=== PATIENT | male | born 1965 | race Caucasian/White ===

== ENCOUNTER 2019-01-04 07:54 | Emergency (ER) | payer MEDICARE ==
[2019-01-04] MEDS ORDERED: Ketorolac Tromethamine 30 MG/ML VIAL ONE (08:18)
[2019-01-04 08:32] LABS: #Basophils 0.1 thou/uL (0.0-0.2); #Eosinphils 0.2 thou/uL (0.0-0.7); #Lymphocytes 2.1 thou/uL (1.20-3.40); #Monocytes 0.7 thou/uL (0.11-0.59); #Neutrophils 4.3 thou/uL (1.40-6.50); %Eosinophils 2.1 % (0.0-10.0); %Monocytes 9.6 % (0.0-10.0); %Neutrophils 58.3 % (42.0-75.0); Hemoglobin 13.4 g/dL (14.0-18.0); Mean Corpuscular HGB CONC 32.2 g/dL (32.0-36.0); Mean Corpuscular Hemoglobin 28.4 pg (27.0-31.0); Mean Corpuscular Volume 88.2 fL (78.0-98.0); Mean Platelet Volume 6.7 fL (7.4-10.4); Platelet Count 322 thou/uL (130-400); RBC Distribution Width 15.1 % (11.5-14.5); Red Blood Cell (RBC) Count 4.73 mill/uL (4.70-6.10); White Blood Cell (WBC) Count 7.4 thou/uL (4.8-10.8)
[2019-01-04 08:45] LABS: ALT (SGPT) 13 U/L (8-55); AST (SGOT) 11 U/L (5-34); Albumin 4.1 g/dL (3.5-5.0); Alkaline Phosphatase 121 U/L (40-150); Anion Gap 11 mmol/L (10-20); BUN (Urea Nitrogen) 10 mg/dL (8.4-25.7); Bilirubin, Total 0.4 mg/dL (0.2-1.2); Calc. Creatinine Clearance 0 mL/min (70-130); Calcium 9.3 mg/dL (7.8-10.44); Carbon Dioxide 29 mmol/L (22-29); Chloride 91 mmol/L (98-107); Estimated GFR-MDRD Greater than 90; Globulin 2.5 g/dL (2.4-3.5); Glucose 95 mg/dL (70-105); Protein, Total 6.6 g/dL (6.0-8.3); Sodium 126 mmol/L (136-145)
[2019-01-04] MEDS ORDERED: Fentanyl 100 MCG/2 ML VIAL ONE (08:52)
--- NOTE | 2019-01-04 11:32 | CT ---
CT ABDOMEN AND PELVIS WITHOUT CONTRAST: Date: 01/04/[address] of the abdomen and pelvis was done for evaluation of right flank pain. Axial slices were ac quired, followed by coronal and sagittal reconstructions. FINDINGS: The lung bases are clear. The liver, spleen, pancreas, gallbladder, adrenal glands, and abdominal aorta showed no acute finding s within the limitations of the noncontrast study. Some calcifications are seen in the left kidney, but not the right. There is a vague 1.6 cm lucency i n the mid portion of the left kidney. Statistically, this is most likely a cyst; however, an elective ultrasound is needed to be certain that it is not solid pathology. The aorta does show some calcific ation. The bowel shows no distention, inflammatory change, or bowel wall thickening. The appendix appears no rmal. No free air or free fluid seen. CT of the pelvis shows no pelvic masses, inflammatory changes, or free fluid. A few pelvic calcificat ions all appear to be phleboliths. IMPRESSION: 1. No acute abdominal or pelvic findings to explain the patient's pain. 2. Specifically, no evidence of right-sided urinary tract calculi or appendicitis. 3. Left renal calculi. Lucency in the left kidney that needs elective investigation with ultrasound. Most likely a cyst, but further studies are needed to be certain. Findings and recommendations for follow-up discussed with Dr. Torrez at 0904 hours on 01/04/19. CODE CR. POS: HOME
== END 2019-01-04 09:18 | disposition home or self-care (01) ==
LOC: BURERS 07:54
DX: M54.5 Low back pain (principal); K21.9 Gastro-esophageal reflux disease without esophagitis; F17.210 Nicotine dependence, cigarettes, uncomplicated; Z79.899 Other long term (current) drug therapy
CPT/HCPCS: 36415; 74176; 80053; 85025; 96374; 96375; J1885; J3010

== ENCOUNTER 2019-10-09 13:45 | Emergency (ER) | payer MEDICARE ==
[~2019-10-09 13:45] MED LIST: Iopamidol 370 76% 100 ML VIAL ONE
[2019-10-09 14:19] LABS: #Basophils 0.1 thou/uL (0.0-0.2); #Eosinphils 0.2 thou/uL (0.0-0.7); #Lymphocytes 2.2 thou/uL (1.20-3.40); #Monocytes 0.9 thou/uL (0.11-0.59); #Neutrophils 6.1 thou/uL (1.40-6.50); %Basophils 1.2 % (0.0-1.0); %Eosinophils 2.1 % (0.0-10.0); %Monocytes 9.6 % (0.0-10.0); Hemoglobin 12.8 g/dL (14.0-18.0); Mean Corpuscular Hemoglobin 28.8 pg (27.0-31.0); Mean Corpuscular Volume 87.3 fL (78.0-98.0); Mean Platelet Volume 6.7 fL (7.4-10.4); Platelet Count 307 thou/uL (130-400); RBC Distribution Width 16.3 % (11.5-14.5); Red Blood Cell (RBC) Count 4.43 mill/uL (4.70-6.10); White Blood Cell (WBC) Count 9.6 thou/uL (4.8-10.8)
[2019-10-09] MEDS ORDERED: HYDROmorphone 0.5 MG/0.5 ML SYRINGE ONE (14:22)
[2019-10-09] MEDS ORDERED: Ondansetron PF 4 MG/2 ML Vial ONE (14:28)
[2019-10-09 14:31] LABS: ALT (SGPT) 30 U/L (8-55); AST (SGOT) 21 U/L (5-34); Alkaline Phosphatase 150 U/L (40-110); Anion Gap 13 mmol/L (10-20); BUN (Urea Nitrogen) 10 mg/dL (8.4-25.7); Bilirubin, Total 0.2 mg/dL (0.2-1.2); Calc. Creatinine Clearance 0 mL/min (70-130); Calcium 8.9 mg/dL (7.8-10.44); Carbon Dioxide 32 mmol/L (22-29); Chloride 88 mmol/L (98-107); Estimated GFR-MDRD Greater than 90; Globulin 2.9 g/dL (2.4-3.5); Glucose 104 mg/dL (70-105); Potassium 4.6 mmol/L (3.5-5.1); Protein, Total 6.9 g/dL (6.0-8.3); Sodium 128 mmol/L (136-145)
--- NOTE | 2019-10-09 15:20 | CT ---
CT arteriogram chest with IV contrast and 3-D imaging HISTORY: Chest pain. FINDINGS: There is good contrast opacification pulmonary arteries and thoracic aorta with normal bran marian great vessels at the aortic arch. Centered at the suprahilar level of the right upper lobe is a lobular soft tissue density mass measuring up to 2.1 cm length by 2.7 cm width by 1.7 cm depth. Sub tle spiculated margins. Adjacent tiny satellite lesions. Enlarged lymph nodes at the right hilum overall measure up to 3.3 cm x 2.5 cm greatest diameters. The re is narrowing to the bronchus to the right middle lobe. No enlarged lymph nodes in the left. Mild emphysematous changes within the upper lobes. No other lung masses evident. Subtle very patchy p eripheral groundglass opacities involve each lung, primarily the lower lobes. Within the partially visualized upper abdomen, there are innumerable ill-defined low density masses t hroughout the liver, measuring up to 2.4 cm greatest oblique diameter within the medial segment left liver lobe adjacent to the falciform ligament. IMPRESSION: No CT evidence of pulmonary embolus. 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 Bronchial narrowin g to the right middle lobe. Possibly accessible via bronchoscopy.
[2019-10-09] MEDS ORDERED: Ketorolac Tromethamine 30 MG/ML VIAL ONE (17:19)
== END 2019-10-09 17:30 | disposition left against medical advice (07) ==
LOC: BURERS 13:45
DX: R07.9 Chest pain, unspecified (principal); M54.9 Dorsalgia, unspecified; K21.9 Gastro-esophageal reflux disease without esophagitis; F31.9 Bipolar disorder, unspecified; F17.210 Nicotine dependence, cigarettes, uncomplicated; Z79.51 Long term (current) use of inhaled steroids; Z79.899 Other long term (current) drug therapy; Z79.82 Long term (current) use of aspirin
CPT/HCPCS: 71275; 80053; 83880; 84484; 85025; 93005; 96374; 96375; J1170; J1885; J2405; Q9967